=== PATIENT | female | born 1985 | race Caucasian/White ===

== ENCOUNTER 2019-02-15 15:32 | Inpatient (IN) ==
[2019-02-15] MEDS ORDERED: MEPERIDINE 50 MG/1 ML VIAL IV PRN (16:40)
[2019-02-15 16:49] LABS: Basophils # 0.1 10*3/uL (0.0-0.2); Basophils % 0.3 % (0.0-0.8); Eosinophils # 0.2 10*3/uL (0.0-0.87); Eosinophils % 0.8 % (0.00-10.9); Hematocrit 32.7 VOL% (35.7-47.0); Hemoglobin 10.4 GM/DL (12.0-16.0); Immature Granulocytes % 1.4 %; Immature Granulocytes Absolute 0.25 #; Lymphocytes % 10.8 % (21.3-54.2); Mean Corpuscular HGB Conc 31.8 GM/DL (32-36); Mean Corpuscular Volume 89.1 FL (87-102); Monocytes % 4.8 % (1.7-12.7); Neutrophils % 81.9 % (38.7-73.9); Platelet Count 333 T/CUMM (130-400); Red Blood Count 3.67 MC/CUMM (3.8-5.5); Red Cell Distribution Width 13.2 % (9.3-17.3); White Blood Count 18.5 T/CUMM (4-12)
[2019-02-15 17:10] LABS: Alanine Aminotransferase 12 U/L (13-56); Albumin 2.2 G/DL (3.4-5.0); Alkaline Phosphatase 131 U/L (45-117); Aspartate Amino Transferase 10 U/L (0-37); Bilirubin,Total < 0.39 MG/DL (0.2-1.0); Blood Urea Nitrogen 13 MG/DL (7-18); Calcium 9.9 MG/DL (8.5-10.1); Glucose 92 MG/DL (74-106); Osmolality,Calculated 274.7 MOS/KG (273-304); Uric Acid 3.5 MG/DL (2.6-6.0)
[2019-02-15] MEDS: LACTATED RINGERS 1,000 ML IV SCH (17:44)
[2019-02-15] MEDS ORDERED: MAGNESIUM SULF RIDER 4 GM in PREMIX 1 EACH IV ONE (19:44)
[2019-02-15] MEDS ORDERED: LABETALOL 20 MG/4 ML SYRINGE IV PRN (19:44)
[2019-02-15] MEDS ORDERED: LABETALOL 100 MG/20 ML VIAL IV PRN ×2 (19:44)
[2019-02-15] MEDS: ACETAMINOPHEN 500 MG TABLET PO PRN (19:54)
[2019-02-15] MEDS: MAGNESIUM SULF DRIP 40 GM/1,000 ML ML IV SCH (20:22)
[2019-02-15 22:02] LABS: Apearance,Urine CLEAR (Clear); Bacteria,Urine Occasional /HPF (Few); Bilirubin,Urine Negative (Negative); Blood, Urine Negative (Negative); Calcium Oxalate Crystals,Urine Occasional /HPF (Few); Glucose,Urine (UA) Negative (Negative); Ketones,Urine Negative (Negative); Mucus,Urine Occasional /LPF (Occasional); Nitrite,Urine Negative (Negative); Protein,Urine Negative; RBC,Urine 3 /HPF (0-4); Squamous Epithelial Cell,Urine Occasional /HPF (0-10); Urine Color Yellow (Yellow); Urine Specific Gravity 1.025 (1.001-1.035); Urine Urobilinogen < 2.0 EU/DL (0.2-1.0); WBC,Urine 1 /HPF (0-6)
[2019-02-16] MEDS: AMPICILLIN INJ 2,000 MG in SODIUM CHLORIDE 0.9% 100 ML IV SCH ×5 (00:11→23:59)
[2019-02-16] MEDS: ONDANSETRON 4 MG/2 ML VIAL IV PRN ×3 (00:19→18:03)
[2019-02-16] MEDS: BUTORPHANOL 2 MG/ML VIAL IV PRN (00:20)
[2019-02-16] MEDS ORDERED: PROMETHAZINE 25 MG/1 ML VIAL IM PRN (08:31)
[2019-02-16] MEDS ORDERED: NALOXONE 0.4 MG/ML VIAL IV PRN (08:31)
[2019-02-16] MEDS ORDERED: diphenhydrAMINE 50 MG/1 ML VIAL IV PRN (08:31)
[2019-02-16] MEDS ORDERED: FAMOTIDINE 20 MG/2 ML VIAL IV ONE (08:31)
[2019-02-16] MEDS ORDERED: hydrOXYzine HCL 25 MG/1 ML VIAL IM PRN (08:31)
[2019-02-16] MEDS ORDERED: ePHEDrine 50 MG/ML AMP IV PRN (08:31)
[2019-02-16] MEDS ORDERED: CITRIC ACID/SODIUM CITRATE 30 ML UDCUP PO ONE (08:31)
[2019-02-16] MEDS: LACTATED RINGERS 1,000 ML IV SCH ×2 (09:08→18:14)
[2019-02-16] MEDS: fentaNYL 2 MCG/ROPIV 0.2% EPID 100 ML EPIDURAL SCH ×2 (09:30→17:14)
[2019-02-16] MEDS: ACETAMINOPHEN 500 MG TABLET PO PRN (10:11)
[2019-02-16] MEDS ORDERED: OXYTOCIN/LR 20 UNIT/1,000 ML BAG IV SCH (10:30)
[2019-02-16 18:14] LABS: Apearance,Urine CLOUDY (Clear); Bacteria,Urine Moderate /HPF (Few); Bilirubin,Urine Negative (Negative); Blood, Urine Large mg/dL (Negative); Glucose,Urine (UA) Negative (Negative); Ketones,Urine 5 mg/dL (Negative); Mucus,Urine Few /LPF (Occasional); Nitrite,Urine Negative (Negative); Protein,Urine 100 MG/DL; RBC,Urine 3724 /HPF (0-4); Urine Color Brown (Yellow); Urine Specific Gravity 1.038 (1.001-1.035); Urine Urobilinogen < 2.0 EU/DL (0.2-1.0); WBC,Urine 28 /HPF (0-6)
[2019-02-16] MEDS ORDERED: fentaNYL 100 MCG/2 ML VIAL ONE ×2 (18:36→23:38)
[2019-02-16] MEDS ORDERED: LIDOCAINE MPF 2% /EPI 20 ML VIAL ONE ×2 (18:37→21:18)
[2019-02-16] MEDS ORDERED: ROPIVACAINE 0.5% 30 ML VIAL ONE (23:38)
[2019-02-17] MEDS ORDERED: MEPERIDINE 50 MG/1 ML VIAL IV ONE (00:09)
[2019-02-17] MEDS: ONDANSETRON 4 MG/2 ML VIAL IV PRN ×2 (00:14→04:07)
[2019-02-17 00:52] LABS: HIV Antigen/Antibody Result Nonreactive (Nonreactive); Hepatitis B Surface Ag Quant < 0.10 Index; Hepatitis B Surface Ag Result Negative (Negative); Hepatitis C Virus Ab Quant 0.11 Index; Hepatitis C Virus Ab Result Negative (Negative)
[2019-02-17] MEDS: LACTATED RINGERS 1,000 ML IV SCH (03:40)
[2019-02-17] MEDS: BUTORPHANOL 2 MG/ML VIAL IV PRN (04:07)
[2019-02-17] MEDS ORDERED: LIDOCAINE MPF 2% /EPI 20 ML VIAL ONE (05:06)
[2019-02-17] MEDS: AMPICILLIN INJ 2,000 MG in SODIUM CHLORIDE 0.9% 100 ML IV SCH (05:51)
[2019-02-17] MEDS ORDERED: ceFAZolin 3,000 MG in SYRINGE 1 EACH IV ONE (07:07)
[2019-02-17] MEDS ORDERED: AMPICILLIN/SULBACTAM 3,000 MG VIAL ONE (07:07)
[2019-02-17 07:54] LABS: Cord Arterial Blood HCO3 17.5 MMOL/L
[2019-02-17 07:55] LABS: Cord Venous Blood HCO3 21.8 MMOL/L; Cord Venous Blood PCO2 48.4 MMHG; Cord Venous Blood PO2 32.8 MMHG
[2019-02-17] MEDS ORDERED: IBUPROFEN 800 MG TABLET PO PRN (08:02)
[2019-02-17] MEDS ORDERED: MAGNESIUM HYDROXIDE SUSP 30 ML UDCUP PO PRN (08:02)
[2019-02-17] MEDS ORDERED: SIMETHICONE CHEW 80 MG TABLET PO PRN (08:02)
[2019-02-17] MEDS ORDERED: RHO(D) IMMUNE GLOBULIN 300 MCG SYRINGE IM ONE (08:02)
[2019-02-17] MEDS ORDERED: ACETAMINOPHEN 325 MG TABLET PO PRN (08:02)
[2019-02-17] MEDS ORDERED: OXYTOCIN/LR 20 UNIT/1,000 ML BAG IV ONE (08:02)
[2019-02-17] MEDS ORDERED: ONDANSETRON 4 MG/2 ML VIAL IV PRN (08:02)
[2019-02-17] MEDS ORDERED: ROCURONIUM 100 MG/10 ML VIAL IV ONE (08:22)
[2019-02-17] MEDS ORDERED: PROPOFOL 200 MG/20 ML VIAL IV ONE (08:22)
[2019-02-17] MEDS ORDERED: SUCCINYLCHOLINE 200 MG/10 ML VIAL ONE (08:22)
[2019-02-17] MEDS ORDERED: GLYCOPYRROLATE 0.4 MG/2 ML VIAL ONE (08:22)
[2019-02-17] MEDS ORDERED: ONDANSETRON 4 MG/2 ML VIAL ONE (08:22)
[2019-02-17] MEDS ORDERED: KETOROLAC 30 MG/1 ML VIAL ONE (08:22)
[2019-02-17] MEDS ORDERED: SEVOFLURANE 1 UNIT/15 MINUTE INH ONE (08:22)
[2019-02-17] MEDS ORDERED: DEXAMETHASONE 4 MG/1 ML VIAL ONE (08:22)
[2019-02-17] MEDS ORDERED: MIDAZOLAM 2 MG/2 ML VIAL ONE (08:23)
[2019-02-17] MEDS ORDERED: NEOSTIGMINE 10 MG/10 ML VIAL ONE (08:23)
[2019-02-17] MEDS ORDERED: fentaNYL 100 MCG/2 ML VIAL ONE (08:23)
[2019-02-17] MEDS ORDERED: ceFAZolin 1,000 MG in SYRINGE 1 EACH IV SCH (08:30)
[2019-02-17] MEDS ORDERED: LACTATED RINGERS 1,000 ML IV SCH (08:30)
[2019-02-17] MEDS ORDERED: HYDROmorphone 2 MG/1 ML VIAL IV SCH (08:30)
[2019-02-17] MEDS ORDERED: DOCUSATE SODIUM 100 MG CAPSULE PO SCH (09:00)
[2019-02-17] MEDS ORDERED: MULTIVITAMIN (PRENATAL) TABLET PO SCH (09:00)
[2019-02-17] MEDS: MAGNESIUM SULF DRIP 40 GM/1,000 ML ML IV SCH (09:30)
[2019-02-17] MEDS ORDERED: HYDROmorphone 2 MG/1 ML VIAL IV PRN (16:00)
[2019-02-17] MEDS ORDERED: SODIUM CHLORIDE 0.9% 1,000 ML IV PRN (16:52)
[2019-02-17] MEDS ORDERED: PROPOFOL 1,000 MG/100 ML BOTTLE IV ONE (16:55)
[2019-02-17] MEDS ORDERED: LORazepam 2 MG/1 ML VIAL ONE (17:00)
[2019-02-17 17:02] LABS: Hematocrit 20.5 VOL% (35.7-47.0)
[2019-02-17] MEDS ORDERED: FUROSEMIDE 40 MG/4 ML VIAL ONE (17:03)
[2019-02-17] MEDS ORDERED: LORazepam 2 MG/1 ML VIAL IV ONE (17:06)
[2019-02-17] MEDS ORDERED: FUROSEMIDE 40 MG/4 ML VIAL IV ONE (17:06)
[2019-02-17 17:18] LABS: Albumin 1.2 G/DL (3.4-5.0); Bilirubin,Total 0.4 MG/DL (0.2-1.0); Calcium 7.3 MG/DL (8.5-10.1); Osmolality,Calculated 281.8 MOS/KG (273-304); Total Protein 4.1 G/DL (6.4-8.3)
[2019-02-17] MEDS ORDERED: ATROPINE 1 MG/10 ML SYRINGE IV ONE (17:18)
[2019-02-17] MEDS ORDERED: SODIUM BICARBONATE 50 MEQ/50 ML SYRINGE IV ONE (17:21)
[2019-02-17] MEDS ORDERED: EPINEPHrine 1 MG/10 ML SYRINGE IV ONE (17:22)
[2019-02-17] MEDS ORDERED: CALCIUM CHLORIDE 1,000 MG/10 ML SYRINGE IV ONE (17:25)
[2019-02-17] MEDS ORDERED: AMIODARONE 150 MG/3 ML VIAL ONE (17:25)
[2019-02-17] MEDS ORDERED: AMIODARONE 450 MG/9 ML VIAL IV ONE (17:25)
[2019-02-17] MEDS ORDERED: DEXTROSE 50% 25 GM/50 ML SYRINGE IV ONE (17:27)
[2019-02-17] MEDS ORDERED: SODIUM BICARBONATE 50 MEQ/50 ML VIAL IV ONE (17:29)
[2019-02-17] MEDS ORDERED: SODIUM BICARB INJ 150 MEQ in DEXTROSE 5% 1,000 ML IV ONE (17:30)
[2019-02-17] MEDS ORDERED: EPINEPHrine 1 MG/ML VIAL IV ONE (17:31)
[2019-02-17] MEDS ORDERED: AMIODARONE INJ 150 MG in DEXTROSE 5% 100 ML IV ONE (17:34)
[2019-02-17 17:37] LABS: Basophils # 0.3 10*3/uL (0.0-0.2); Basophils % 0.4 % (0.0-0.8); Eosinophils # 0.2 10*3/uL (0.0-0.87); Eosinophils % 0.4 % (0.00-10.9); Hematocrit 20.9 VOL% (35.7-47.0); Immature Granulocytes % 15.2 %; Immature Granulocytes Absolute 9.36 #; Lymphocytes # 7.9 10*3/uL (1.4-4.0); Lymphocytes % 12.7 % (21.3-54.2); Mean Corpuscular HGB Conc 28.7 GM/DL (32-36); Mean Corpuscular Volume 103.5 FL (87-102); Mean Platelet Volume 10.6 FL (9.6-12.0); Monocytes % 5.1 % (1.7-12.7); NRBC # 1.08 10*3/uL; Neutrophils % 66.2 % (38.7-73.9); Platelet Count 389 T/CUMM (130-400); Red Blood Count 2.02 MC/CUMM (3.8-5.5); Red Cell Distribution Width 13.5 % (9.3-17.3)
[2019-02-17] MEDS ORDERED: EPINEPHrine 1 MG/10 ML SYRINGE ONE ×2 (17:40)
[2019-02-17 17:43] LABS: White Blood Count 61.8 T/CUMM (4-12)
[2019-02-17] MEDS ORDERED: EPINEPHrine 1 MG/ML VIAL ONE ×2 (17:46→18:14)
[2019-02-17 17:49] LABS: Alanine Aminotransferase 42 U/L (13-56); Albumin 1.3 G/DL (3.4-5.0); Alkaline Phosphatase 150 U/L (45-117); Aspartate Amino Transferase 146 U/L (0-37); Blood Urea Nitrogen 18 MG/DL (7-18); Calcium 7.5 MG/DL (8.5-10.1); Glucose 212 MG/DL (74-106); Osmolality,Calculated 282.7 MOS/KG (273-304); Total Protein 4.1 G/DL (6.4-8.3)
[2019-02-17 17:50] LABS: Troponin I 0.243 NG/ML (0.00-0.045)
[2019-02-17] MEDS ORDERED: AMIODARONE INJ 450 MG in DEXTROSE 5% 241 ML IV SCH ×2 (18:00→22:00)
[2019-02-17] MEDS ORDERED: SODIUM CHLORIDE 0.9% 1,000 ML IV ONE (18:30)
[2019-02-17 18:51] LABS: Eosinophils 1 % (0-10); Lymphocytes 18 % (20-55); Segmented Neutrophils 75 % (50-85); Total Cells Counted 100
[2019-02-17 18:52] LABS: Hypochromasia 1+; Macrocytosis 1+; Platelet Estimate Adequate
== END 2019-02-17 17:55 | disposition expired | DRG 786 ==
LOC: N.LD → N.ICU 02-17 16:49
PROVIDERS: ADMIT Obstetrics & Gynecology; ATTEND Obstetrics & Gynecology
PROC: LDCSECT (ICD-10-PCS; 2019-02-17 07:15)